=== PATIENT | male | born 1965 | race African-American/Black ===

== ENCOUNTER 2018-11-27 04:01 | Emergency (ER) | payer BC, MEDICAID ==
[~2018-11-27] VITALS: Ht 182.9 cm; Wt 117.0 kg
[~2018-11-27 04:01] MED LIST: DIOVAN HCT 1601 EAC1 ORAL
--- NOTE | 2018-11-27 04:14 | NUR ---
ED Nurse Note: PT AMBULATED TO ED C/O PAIN DUE INABILITY TO URINATE X 5 DAYS PT STATES HES BEEN DRIPPLING URINE AND ITS PAINFUL. Pt states he has stone inside bladder, Pt is AO x 4times, VSS, on room air no distress. DUNG son Pt at bedside.
--- NOTE | 2018-11-27 04:20 | Emergency Room Report ---
History of Present Illness General Chief Complaint: Male Urogenital Problems Source: Patient Present Illness HPI 52-year-old male history of hypertension history of kidney stones, recently diagnosed with an 8 mm and 10 mm stone, descending down the ureters, patient states that he is been having difficulty urinating over the past 3 days, he had cystoscopy with possible obstruction in the bladder, patient refused catheter at that point, patient now with difficulty urinating, no fevers no chills, states that he has some suprapubic pain no aggravating or alleviating factors, severity is moderate, not constant intermittent. Patient states he thinks he is now ready for a catheter. Allergies: Coded Allergies: No Known Allergies (Unverified , 03/12/14) Patient History Past Medical History: see triage record Social History: Reports: alcohol use - Social Reviewed Nursing Documentation: PMH: Agreed; PSxH: Agreed Nursing Documentation-PMH Past Medical History: No History, Except For Hx Hypertension: Yes Review of Systems All Other Systems: negative except mentioned in HPI Physical Exam Vital Signs Date Time Temp Pulse Resp B/P (MAP) Pulse Ox O2 Delivery O2 Flow Rate FiO2 11/27/18 04:03 97.9 85 16 152/98 (116) 95 Room Air Sp02 EP Interpretation: reviewed, normal General Appearance: well appearing, no apparent distress, alert Head: normocephalic, atraumatic Eyes: bilateral eye PERRL, bilateral eye EOMI ENT: uvula midline, moist mucus membranes Neck: supple, thyroid normal, supple/symm/no masses Respiratory: lungs clear, no respiratory distress, no retraction, no accessory muscle use Cardiovascular #1: normal peripheral pulses, regular rate, rhythm, no edema, no gallop, no murmur Gastrointestinal: non tender, soft, no guarding, no rebound Musculoskeletal: normal inspection Neurologic: alert, oriented x3 Psychiatric: mood/affect normal Skin: no rash, warm/dry Medical Decision Making ER Course 52-year-old male presents with kidney stone in the bladder, patient having difficulty urinating however patient is not acutely obstructed, attempted to pass Rivera twice however patient cannot tolerate the procedure, patient has a urologist, patient states he will follow-up with his urologist, he may receive lithotripsy, patient also given a referral to our urologist, no acute emergent requirements at this time, patient is able to pass urine in the department, disposition home with return precautions Lab Results Impression Laboratory Tests Test 11/27/18 04:45 11/27/18 06:10 White Blood Count 5.6 K/UL (4.8-10.8) Red Blood Count 4.63 M/UL (4.70-6.10) L Hemoglobin 11.9 G/DL (14.2-18.0) L Hematocrit 37.3 % (42.0-52.0) L Mean Corpuscular Volume 80 FL (80-99) Mean Corpuscular Hemoglobin 25.7 PG (27.0-31.0) L Mean Corpuscular Hemoglobin Concent 32.0 G/DL (32.0-36.0) Red Cell Distribution Width 13.0 % (11.6-14.8) Platelet Count 223 K/UL (150-450) Mean Platelet Volume 6.8 FL (6.5-10.1) Neutrophils (%) (Auto) 36.1 % (45.0-75.0) L Lymphocytes (%) (Auto) 49.3 % (20.0-45.0) H Monocytes (%) (Auto) 9.3 % (1.0-10.0) Eosinophils (%) (Auto) 3.7 % (0.0-3.0) H Basophils (%) (Auto) 1.5 % (0.0-2.0) Sodium Level 143 MMOL/L (136-145) Potassium Level 3.4 MMOL/L (3.5-5.1) L Chloride Level 107 MMOL/L (98-107) Carbon Dioxide Level 32 MMOL/L (21-32) Anion Gap 4 mmol/L (5-15) L Blood Urea Nitrogen 23 mg/dL (7-18) H Creatinine 1.4 MG/DL (0.55-1.30) H Estimate Glomerular Filtration Rate > 60 mL/min (>60) Glucose Level 112 MG/DL (74-106) H Calcium Level 8.8 MG/DL (8.5-10.1) Total Bilirubin 0.4 MG/DL (0.2-1.0) Aspartate Amino Transferase (AST) 25 U/L (15-37) Alanine Aminotransferase (ALT) 39 U/L (12-78) Alkaline Phosphatase 59 U/L (46-116) Total Protein 7.2 G/DL (6.4-8.2) Albumin 3.5 G/DL (3.4-5.0) Globulin 3.7 g/dL Albumin/Globulin Ratio 0.9 (1.0-2.7) L Urine Color Pale yellow Urine Appearance Slightly cloudy Urine pH 5 (4.5-8.0) Urine Specific [place] 1.020 (1.005-1.035) Urine Protein 2+ (NEGATIVE) H Urine Glucose (UA) Negative (NEGATIVE) Urine Ketones Negative (NEGATIVE) Urine Blood 5+ (NEGATIVE) H Urine Nitrite Negative (NEGATIVE) Urine Bilirubin Negative (NEGATIVE) Urine Urobilinogen 1 MG/DL (0.0-1.0) H Urine Leukocyte Esterase 2+ (NEGATIVE) H Urine RBC 40-60 /HPF (0 - 0) H Urine WBC 10-15 /HPF (0 - 0) H Urine Squamous Epithelial Cells Moderate /LPF (NONE/OCC) H Urine Bacteria Few /HPF (NONE) CT/MRI/US Diagnostic Results CT/MRI/US Diagnostic Results : Impression Preliminary Findings Only See Final Report For Complete Findings CT ABDOMEN & PELVIS Without Contrast: Normal appendix. Mild colonic diverticulosis without diverticulitis. No acute process along the GI tract. Nonobstructing nephrolithiasis in the left lower pole. Calcification measuring 7 mm in the region of the bulbar urethra. Indeterminant whether it is within the urethra or adjacent to it however the upstream urethra is not dilated. Fat-containing umbilical hernia. Bilateral pars defects at L3 with grade 1 anterolisthesis and degenerative changes at L3-4. Radiologist: Prateek Lazcano MD Study ready at 06:08 and initial results transmitted at 06:19 Last Vital Signs Date Time Temp Pulse Resp B/P (MAP) Pulse Ox O2 Delivery O2 Flow Rate FiO2 11/27/18 04:03 97.9 85 16 152/98 (116) 95 Room Air Disposition: HOME, SELF-CARE Condition: Stable Scripts Tamsulosin HCl (Flomax) 0.4 Mg Cap.er.24h 0.4 MG ORAL DAILY, #30 CAP Prov: Willie Leung MD 11/27/18 Cephalexin* (CEPHALEXIN*) 500 Mg Tablet 500 MG ORAL EVERY 6 HOURS, #40 CAP Prov: Willie Leung MD 8/15/19 Referrals: NOT CHOSEN IPA/,REFERRING (PCP) Onur Conner M.D. [facility] Shashi Trevino. [facility] Patient Instructions: Dietary Guidelines to Help Prevent Kidney Stones, Kidney Stones, [id number], Lithotripsy Additional Instructions: The patient was provided with discharge instructions, notified to follow-up with a primary care doctor and or specialist in the next 24-48 hours, and to return to the ED if they have worsening of their symptoms. Please note that this report is being documented using [employer] technology. This can lead to erroneous entry secondary to incorrect interpretation by the dictating instrument. FOLLOW-UP WITH UROLOGY Willie Helton MD Nov 27, 2018 04:20
--- NOTE | 2018-11-27 04:40 | NUR ---
ED Nurse Note: Unable to get urine via inserting cath, ERMD aware.
--- NOTE | 2018-11-27 04:43 | NUR ---
ED Nurse Note: Blood sample sent to lab.
[2018-11-27 04:44] VITALS: BP 142/78
[2018-11-27 04:55] LABS: BASOPHILS % (AUTO) 1.5 % (0.0-2.0); EOSINOPHILS % (AUTO) 3.7 % (0.0-3.0); HEMATOCRIT 37.3 % (42.0-52.0); HEMOGLOBIN 11.9 G/DL (14.2-18.0); LYMPHOCYTES % (AUTO) 49.3 % (20.0-45.0); MEAN CORPUSCULAR VOLUME 80 FL (80-99); MONOCYTES % (AUTO) 9.3 % (1.0-10.0); NEUTROPHILS % (AUTO) 36.1 % (45.0-75.0); PLATELET COUNT 223 K/UL (150-450); RED BLOOD COUNT 4.63 M/UL (4.70-6.10); WHITE BLOOD COUNT 5.6 K/UL (4.8-10.8)
[2018-11-27 05:04] LABS: ANION GAP 4 mmol/L (5-15); BLOOD UREA NITROGEN 23 mg/dL (7-18); CALCIUM 8.8 MG/DL (8.5-10.1); CARBON DIOXIDE 32 MMOL/L (21-32); CHLORIDE 107 MMOL/L (98-107); CREATININE 1.4 MG/DL (0.55-1.30); POTASSIUM 3.4 MMOL/L (3.5-5.1); SODIUM 143 MMOL/L (136-145)
[2018-11-27 05:09] LABS: ALANINE AMINOTRANSFERASE 39 U/L (12-78); ALBUMIN 3.5 G/DL (3.4-5.0); ALBUMIN/GLOBULIN RATIO 0.9 (1.0-2.7); ALKALINE PHOSPHATASE 59 U/L (46-116); ASPARTATE AMINO TRANSFERASE 25 U/L (15-37); BILIRUBIN,TOTAL 0.4 MG/DL (0.2-1.0)
--- NOTE | 2018-11-27 05:39 | NUR ---
ED Nurse Note: Pt went to CT scan.
--- NOTE | 2018-11-27 06:17 | NUR ---
ED Nurse Note: Urine sample sent to lab.
[2018-11-27 06:19] LABS: APPEARANCE,URINE SLIGHTLY CLOUDY; BILIRUBIN, URINE NEGATIVE (NEGATIVE); COLOR,URINE PALE YELLOW; GLUCOSE, URINE (UA) NEGATIVE (NEGATIVE); KETONES,URINE NEGATIVE (NEGATIVE); NITRITE,URINE NEGATIVE (NEGATIVE); PH,URINE 5 (4.5-8.0); PROTEIN,URINE 2+ (NEGATIVE); UROBILINOGEN,URINE 1 MG/DL (0.0-1.0)
--- NOTE | 2018-11-27 06:19 | Diagnostic Imaging Report ---
Indication: Abdominal pain for 2 days Technique: Spiral acquisitions obtained through the abdomen and pelvis. No oral contrast utilized, per emergency room physician request No IV contrast utilized, per referring physician request.. Multiplanar reconstructions were generated. Total dose length product 1074.66 mGycm. CTDIvol(s) 18.84 mGy. Dose reduction achieved using automated exposure control Comparison: 03/12/2014 Findings: Normal appendix. Again demonstrated is a broad-based fat-containing umbilical hernia. There are scattered colonic diverticula. No evidence of diverticulitis. Distal esophagus, stomach, duodenum are unremarkable. There is diastases of the rectus abdominis tendon. No small bowel distention. No free or loculated intraperitoneal gas or fluid is evident. Lack of IV contrast limits assessment of the solid organs. The liver demonstrates multiple cysts as well as a few subcentimeter low-attenuation lesions which are too small to characterize. The gallbladder, bile ducts, pancreas, spleen, adrenals are unremarkable. Again demonstrated is a large calculus in the lower pole of the left kidney, currently measuring 13 x 11 x 14 mm. No hydronephrosis or ureteral calculi. Previously demonstrated right renal calculi are no longer evident. Again demonstrated is wall thickening of the bladder. The prostate is mildly prominent. There is a similar calculus in the region of the bulbar urethra. This is not appreciated previously but could've been excluded from the prior imaging volume. Uncertain whether it is actually within the urethra or within the corpus spongiosum. The included lung bases are clear. The bones demonstrate bilateral L3 pars defects, with grade 1 L3 on L4 or spondylolisthesis, and secondary degenerative change. There are also bilateral L5 pars defects with resultant minimal L5 on S1 spondylolisthesis and secondary degenerative change. Impression: Bladder wall thickening, similar to the previous study, could indicate cystitis or could be on the basis of chronic outlet obstruction 7 mm calculus in the penis in the region of the bulbar urethra, could represent a urethral calculus. 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 The CT scanner at [facility] is accredited by the [employer] and the scans are performed using protocols designed to limit radiation exposure to as low as reasonably achievable to attain images of sufficient resolution adequate for diagnostic evaluation.
[2018-11-27] MEDS ORDERED: FLOMAX0.4 MG ORAL (06:22)
[2018-11-27] MEDS ORDERED: CEPHALEXIN500 M1 ORAL (06:22)
[2018-11-27 06:30] LABS: LEUKOCYTE ESTERASE ,URINE 2+ (NEGATIVE)
[2018-11-27 06:40] VITALS: BP 133/79
[2018-11-27] MEDS ORDERED: ALBUTEROL SULF8.5 GM INH (06:40)
--- NOTE | 2018-11-27 06:40 | NUR ---
ER DISCHARGE NOTE: Patient is cleared to be discharged per ERMD, pt is aox4, on room air, with stable vital signs. pt was given dc and prescription instructions, pt was able to verbalize understanding, pt id band and iv site removed without complications. pt is able to ambulate with steady gait. pt took all belongings.
[2018-11-27 06:41] VITALS: BP 133/79
[2018-11-28] MEDS ORDERED: NORCO 5-325 TA1 EACH ORAL (18:36)
== END 2018-11-27 06:45 | disposition home or self-care (01) ==
LOC: EMR 04:14
DX: N20.0 Calculus of kidney (principal); K42.9 Umbilical hernia without obstruction or gangrene; K57.90 Diverticulosis of intestine, part unspecified, without perforation or abscess without bleeding; Z87.442 Personal history of urinary calculi; I10 Essential (primary) hypertension
CPT/HCPCS: 36415; 74176; 80053; 81003; 85025; 87086; 99284

== ENCOUNTER 2018-11-28 12:53 | Emergency (ER) | payer MEDICAID ==
[~2018-11-28] VITALS: Ht 182.9 cm; Wt 120.2 kg
[~2018-11-28 12:53] MED LIST changes: +ALBUTEROL SULF8.5 GM INH; +CEPHALEXIN500 M1 ORAL; +FLOMAX0.4 MG ORAL
--- NOTE | 2018-11-28 13:52 | Emergency Room Report ---
History of Present Illness General Chief Complaint: Male Urogenital Problems Source: Patient (Eduardo Slater MD) Present Illness HPI Disclaimer: Please note that this report is being documented using [employer] technology. This can lead to erroneous entry secondary to incorrect interpretation by the dictating instrument. HPI: 52-year-old male with a history of kidney stones seen yesterday for right- sided flank pain difficulty urinating diagnosed with a 7 mm bulbar urethral stone as well as a chronic left inferior pole stone in the left kidney presents for evaluation of difficulty urinating. He states that he is continued to have right-sided flank pain rating to the groin. He is now putting out very little urine is concerned for obstruction. He has been taking his antibiotic and his Flomax without significant improvement. It appears that they try to pass a Rivera yesterday but were unable to go past and obstruction. He has not yet seen urology. Denies fever or chest pain. Reports intermittent nausea without vomiting. Denies diarrhea. PMH: Recurrent kidney stones Allergies: None Social Hx: Denies alcohol or drug abuse (Eduardo Slater MD) Allergies: Coded Allergies: No Known Allergies (Unverified , 03/12/14) Nursing Documentation-PMH Past Medical History: No History, Except For Hx Hypertension: Yes (Eduardo Slater MD) Review of Systems All Other Systems: negative except mentioned in HPI (Eduardo Slater MD) Physical Exam Vital Signs Date Time Temp Pulse Resp B/P (MAP) Pulse Ox O2 Delivery O2 Flow Rate FiO2 11/28/18 12:58 98.2 97 20 140/83 (102) 98 Room Air General: Awake and alert, no acute distress, sitting upright in a chair HEENT: NC/AT. EOMI. Cardiovascular: RRR. S1 and S2 normal. No murmur appreciated Resp: Normal work of breathing. No cough, wheezing or crackles appreciated Abdomen: Abdomen is soft, nondistended, obese. There is an easily reducible umbilical hernia that is nontender and without overlying skin cahnges. Palpation in the right lower quadrants and suprapubic regions find mild tenderness and fullness Skin: Intact. No abrasions, laceration or rash over the exposed skin MSK: Normal tone and bulk. Moving all extremities. No obvious deformity. Neuro: Awake and alert. Mentating appropriately. Back/Spine: There is right-sided CVA tenderness. Negative on left (Eduardo Slater MD) Procedures Additional Procedure Procedure Narrative Bedside ultrasound bladder scan. Postvoid residual volume 260 cc. (Eduardo Slater MD) Medical Decision Making Diagnostic Impression: Primary Impression: Urethral calculus ER Course Is a 52-year-old male who was diagnosed as 7 mm stone in the bulbar urethra yesterday presenting with inability to urinate. Patient states he has had urethral strictures in the past and has been very difficult to pass Rivera catheters. They attempted twice yesterday but were unable to pass a catheter. I attempted to pass a 14 Mauritian straight and a 14 Mauritian coud catheter also unsuccessfully. Will discuss with urology. Creatinine improved from 1.4 to 1.1. Postvoid residual is 260 cc. He received pain medication with some improvement. Patient will be signed out to the oncoming provider pending urology evaluation and treatment recommendations. Laboratory Tests Test 11/28/18 14:04 Sodium Level 146 MMOL/L (136-145) H Potassium Level 3.3 MMOL/L (3.5-5.1) L Chloride Level 108 MMOL/L (98-107) H Carbon Dioxide Level 32 MMOL/L (21-32) Anion Gap 6 mmol/L (5-15) Blood Urea Nitrogen 16 mg/dL (7-18) Creatinine 1.1 MG/DL (0.55-1.30) Estimate Glomerular Filtration Rate > 60 mL/min (>60) Glucose Level 118 MG/DL (74-106) H Calcium Level 9.0 MG/DL (8.5-10.1) (Eduardo Slater MD) ER Course This patient was turned over to me by Dr. Slater. The patient has a history of urethral strictures and has an identified urethral stone on the CT done yesterday. He was awaiting Rivera catheter placement by urology. Dr. Batista , urologist, did do a stricture dilation and placed a Rivera catheter in the emergency department. Urine output was obtained in the Rivera catheter. Patient was instructed to follow-up closely with an outpatient urologist per his insurance panel. He was given close return precautions and follow-up instructions. (Lindao,Swathi M. DO) Last Vital Signs Date Time Temp Pulse Resp B/P (MAP) Pulse Ox O2 Delivery O2 Flow Rate FiO2 11/28/18 12:58 98.2 97 20 140/83 (102) 98 Room Air (Eduardo Slater MD) Signed Out To: Dr. Cabrera (Eduardo Slater MD) Scripts Hydrocodone Bit/Acetaminophen 5-325* (NORCO 5-325*) 1 Each Tablet 1 TAB ORAL Q6H PRN for For Pain, #10 TAB 0 Refills Prov: Swathi Cabrera DO 11/28/18 Referrals: NOT CHOSEN IPA/,REFERRING (PCP) Eduardo Slater MD Nov 28, 2018 13:52 Swathi Cabrera DO Nov 28, 2018 18:31
[2018-11-28 14:00] VITALS: BP 140/83
[2018-11-28] MEDS ORDERED: Morphine Sulfate 2mg/ml Inj(IV/IM USE ONLY) IVP ONE (14:00)
--- NOTE | 2018-11-28 14:00 | NUR ---
ED Nurse Note: pt walked in due to flank pain cause by kidney stone as verbalized by the pt. pt was seen in the ed for the same reason 2 days ago. able to pass urine but taked time and is painful. will continue to monitor.
--- NOTE | 2018-11-28 14:16 | NUR ---
ED Nurse Note: blood drawn and sent to lab,. pt medicated as ordered. pt able to tolerate. will continue to monitor.
--- NOTE | 2018-11-28 14:30 | NUR ---
ED Nurse Note: pt stated it has no pain now.
[2018-11-28 14:38] LABS: ANION GAP 6 mmol/L (5-15); BLOOD UREA NITROGEN 16 mg/dL (7-18); CARBON DIOXIDE 32 MMOL/L (21-32); CHLORIDE 108 MMOL/L (98-107); CREATININE 1.1 MG/DL (0.55-1.30); POTASSIUM 3.3 MMOL/L (3.5-5.1); SODIUM 146 MMOL/L (136-145)
--- NOTE | 2018-11-28 15:00 | NUR ---
ED Nurse Note: ermd on bedside doing catheterization
--- NOTE | 2018-11-28 15:30 | NUR ---
ED Nurse Note: Received patient from [facility] RN, patient is stable in bed. in no acute distress, awaiting for urology.
--- NOTE | 2018-11-28 18:20 | NUR ---
ED Nurse Note: Urologist by the bedside.
[2018-11-28] MEDS ORDERED: HYDROcodone/Acetamin 5/325 tab ORAL ONE (18:30)
[2018-11-28] MEDS ORDERED: NORCO 5-325 TA1 EACH ORAL (18:36)
--- NOTE | 2018-11-28 18:59 | NUR ---
ED Nurse Note: patient provided with leg bag, instruction given. patient verbalized understanding. patient declined to take [place] prescription, patient reports he does have some pain medication at home, he does not need new prescription. Dr. Cabrera made aware.
--- NOTE | 2018-11-28 19:05 | NUR ---
ER DISCHARGE NOTE: Patient is cleared to be discharged per DUNG BERRIOS, pt is aox4, on room air, with stable vital signs. pt was given dc and prescription instructions, pt was able to verbalize understanding, pt id band and iv site removed without complications. pt is able to ambulate with steady gait. pt took all belongings. patient reports he does not feel drowsy at this time. patient is changing into his own clothes. patient advised to wait in the waiting room and under Rn's monitor until stable to be discharged, endorsed to Jane GEORGE.
[2018-11-28 19:16] VITALS: BP 140/83
--- NOTE | 2018-11-28 19:16 | NUR ---
ED Nurse Note: patient discharged from the waiting room. patient reports that he does not feel drowsy at all. patient is ambulatory steady gait. patient insisted that he is ok to go home now. RN advised to be safe and wait in the waiting room for some more time.
--- NOTE | 2018-11-28 19:30 | Consultation ---
DATE OF CONSULTATION: 11/28/2018 ATTENDING/CONSULTING PHYSICIAN: Dr. Slater of the emergency department. CHIEF COMPLAINT/ HISTORY OF PRESENT ILLNESS: I was asked by Dr. Slater to evaluate and treat this very pleasant 52-year-old, gentleman regarding history of urinary retention with urethral stone/stricture. Briefly, the patient has a history of kidney stones in the past. Apparently he has passed them without difficulty. He presented to the hospital with some difficulty passing urine; however, imaging was done which revealed some calcification in the bulbar urethra, thought to be a possible stone. Staff could not pass the catheter and as such, I was asked to evaluate the patient. PAST MEDICAL HISTORY: Kidney stones and hypertension. PAST SURGICAL HISTORY: Cystoscopy. MEDICATIONS: Please see chart for current medications administration details. ALLERGIES: No known drug allergies. SOCIAL HISTORY: Unremarkable for tobacco, alcohol, or drug use. FAMILY HISTORY: Noncontributory. REVIEW OF SYSTEMS: A 14-system review of systems was essentially unremarkable outside of what is described above. PHYSICAL EXAMINATION: GENERAL: The patient is a middle-aged gentleman, awake, alert, and oriented x4, very pleasant, mild distress. HEENT: NC/AT. EOMI. NECK: Supple. Full range of motion. Oropharynx clear. Chest within normal limits. ABDOMEN: Soft, nontender, and nondistended except suprapubically where there is some tenderness over the bladder. There was an umbilical hernia noted. EXTREMITIES: Warm and well perfused. No cyanosis, clubbing or edema. BACK: No CVA tenderness to percussion. NEUROLOGIC: Grossly nonfocal. GENITOURINARY: Normal male phallus, circumcised. No discharge, lesions, or curvature. There are bilateral descended testes and cord structures. No masses or tenderness to palpation. LABORATORY DATA: Sodium 146, potassium 3.3, chloride 108, bicarbonate 32, BUN 16, creatinine 1.1, glucose 118 calcium 9.0. DIAGNOSTIC IMAGING: CT scan of the abdomen and pelvis done yesterday reveals a 7 mm calculus in the penis in the region of the bulbar urethra, could represent a urethral calculus, correlate with clinical findings. There is bladder thickening. There is a large lower pole left renal stone measuring 13 x 11 x 14 millimeters in size. There is interval resolution of the previously demonstrated right renal calculi, other findings as noted. ASSESSMENT AND PLAN: In summary, the patient is a 52-year-old gentleman with a history of kidney stones. He also has a history of urethral strictures. He presents with difficulty urinating. Previous CT scan yesterday revealed 7 mm calcification in the bulbar urethra. It was initially thought to be a urethral stone. Staff could not pass catheter and as such, I was asked to evaluate the patient. Physical exam is notable for suprapubic distention and tenderness and umbilical hernia. Laboratory data is essentially unremarkable. Diagnostic imaging reveals the findings described above. I attempted to pass a 14-Bahraini coude catheter into the patient's bladder today, this met with resistance in the bulbar urethra but it was consistent with a urethral stricture rather than a stone which was stuck. I was able to negotiate a filiform into the bladder and once this was in place, I was able to dilate up the stricture from 12 to 18-Bahraini. Once this was done, I could pass a [place]-tip catheter over the wire and into the bladder with return of clear yellow urine output. It was irrigated and irrigated easily indicating good position within the bladder. It was inflated and left to gravity drainage. The patient's catheter should be kept in place and he can be discharged with it. He can follow up with planned contract urologist as an outpatient for further evaluation and management of the same. Thank you for allowing to participate in the care of this nice gentleman. Please do not hesitate to contact me for any questions that you may further have regarding his care. I will see him with you as needed. Onur Conner M.D. DR: Nandini JOB#: [id number] CC:
== END 2018-11-28 19:16 | disposition home or self-care (01) ==
LOC: EMR 13:28
DX: N21.1 Calculus in urethra (principal); I10 Essential (primary) hypertension
CPT/HCPCS: 36415; 80048; 96374; 99284; J2270

== ENCOUNTER 2018-12-03 02:52 | Emergency (ER) | payer MEDICAID ==
[~2018-12-03] VITALS: Ht 182.9 cm; Wt 121.1 kg
[~2018-12-03 02:52] MED LIST changes: +NORCO 5-325 TA1 EACH ORAL
[2018-12-03 03:10] VITALS: BP 137/85
--- NOTE | 2018-12-03 03:11 | NUR ---
ER Nurse Note: Pt came from home c/o removal of cath. Pt stated he was at [facility] 1 week ago for the insertion and now wants it removed. Pt has hx of kindey stones and had the cath inserted. Pt stated minor hematuria. Will continue to montior.
[2018-12-03 03:15] VITALS: BP 137/85
--- NOTE | 2018-12-03 03:15 | Emergency Room Report ---
History of Present Illness General Chief Complaint: Wound Recheck/Suture Removal Source: Patient Present Illness [facility] This is a 52-year-old male with history of hypertension. He presents here with chief complaint of Rivera removal. He had a Rivera placed 5 days ago secondary to a penile stone and urethral stricture. Neurologist have to come in to place one here. Patient said since then is been having not much of an issue other than some mild dysuria and constipation. He denies any calcification. He is unable to get a contracted urologist from his insurance. He is here to have it removed. Allergies: Coded Allergies: No Known Allergies (Unverified , 03/12/14) Patient History Past Medical History: see triage record, old chart reviewed, HTN Past Surgical History: none Pertinent Family History: none Social History: Denies: smoking Immunizations: other Reviewed Nursing Documentation: PMH: Agreed; PSxH: Agreed Nursing Documentation-PMH Hx Hypertension: Yes Review of Systems Eye: Denies: eye pain, blurred vision ENT: Denies: ear pain, nose congestion, throat swelling Respiratory: Denies: cough, shortness of breath Cardiovascular: Denies: chest pain, palpitations Gastrointestinal: Denies: abdominal pain, diarrhea, nausea, vomiting Musculoskeletal: Denies: back pain, joint pain Skin: Denies: rash Neurological: Denies: headache, numbness Endocrine: Denies: increased thirst, increased urine Hematologic/Lymphatic: Denies: easy bruising All Other Systems: negative except mentioned in HPI Physical Exam Vital Signs Date Time Temp Pulse Resp B/P (MAP) Pulse Ox O2 Delivery O2 Flow Rate FiO2 12/03/18 02:56 98.8 99 17 137/85 (102) 94 Room Air Vitals normal Sp02 EP Interpretation: reviewed, normal General Appearance: well appearing, no apparent distress, alert Head: normocephalic, atraumatic Eyes: bilateral eye PERRL, bilateral eye EOMI ENT: hearing grossly normal, normal pharynx Neck: full range of motion, supple, no meningismus Respiratory: chest non-tender, lungs clear, normal breath sounds Cardiovascular #1: regular rate, rhythm, no murmur Gastrointestinal: normal bowel sounds, non tender, no mass, no organomegaly, no bruit, non-distended Genitourinary: other - Rivera with clean urine Musculoskeletal: back normal, gait/station normal, normal range of motion Psychiatric: mood/affect normal Medical Decision Making Diagnostic Impression: Primary Impression: Encounter for Rivera catheter removal ER Course Patient here for his Rivera to be removed. He has no issue and unable to follow- up with the urologist. No evidence of infection. Will discharge home. Last Vital Signs Date Time Temp Pulse Resp B/P (MAP) Pulse Ox O2 Delivery O2 Flow Rate FiO2 12/03/18 03:10 98.8 99 17 137/85 94 Room Air Status: improved Disposition: HOME, SELF-CARE Condition: Stable Referrals: NOT CHOSEN IPA/,REFERRING (PCP) Additional Instructions: Follow-up with a urologist in 7 to 10 days. Return if symptoms worsen. Herb Bajwa MD Dec 03, 2018 03:15
--- NOTE | 2018-12-03 03:15 | NUR ---
ER Nurse Note: Pt seen, treated, medically cleared for discharge by ERMD. Discharge instuctions given with repeat verbalization by pt. Emphasized to follow up with primay care provider. All orders completed per ERMD orders. Pt a&ox4, VSS, no signs of distress. Cather removed; tolerated well. ID band removed. All questions answered per pt's questions. Pt left with all belongings, left with own transportation.
== END 2018-12-03 03:15 | disposition home or self-care (01) ==
LOC: EMR 03:03
DX: Z46.6 Encounter for fitting and adjustment of urinary device (principal); I10 Essential (primary) hypertension
CPT/HCPCS: 99282

== ENCOUNTER 2019-02-27 01:48 | Emergency (ER) | payer SELFPAY ==
[~2019-02-27] VITALS: Ht 182.9 cm; Wt 119.3 kg
[2019-02-27 02:05] VITALS: BP 129/88
--- NOTE | 2019-02-27 02:05 | NUR ---
ED Nurse Note: Patient walked in to Er c/o nose congestion x 3-5 days. States has green DC from nose. AAO x4, VSS at this time, denyes fevere at home.
[2019-02-27 02:20] VITALS: BP 129/88
[2019-02-27] MEDS ORDERED: PREDNISONE20 MG ORAL (02:20)
[2019-02-27] MEDS ORDERED: ZITHROMAX250 MG ORAL (02:20)
--- NOTE | 2019-02-27 02:21 | Emergency Room Report ---
History of Present Illness General Chief Complaint: Pain Source: Patient Present Illness HPI Is a 53-year-old male with a history of high blood pressure. He presents with chief complaint of congestion and productive cough. Onset for last 3 to 4 days. Coughing is productive of green sputum. No fever chills. No nausea no vomiting. He does use an inhaler. He said he has a history of "bronchitis". He said this been diagnosed multiple times. He also has complaint of bilateral breast pain and swelling. This been ongoing for over a month. Has not seen his primary care doctor for this. No discharge. No fever chills. Worse with palpation. Allergies: Coded Allergies: No Known Allergies (Unverified , 03/12/14) Patient History Past Medical History: see triage record, old chart reviewed, HTN Past Surgical History: other Pertinent Family History: none Social History: Denies: smoking Immunizations: other Reviewed Nursing Documentation: PMH: Agreed; PSxH: Agreed Nursing Documentation-PMH Hx Hypertension: Yes Review of Systems Eye: Denies: eye pain, blurred vision ENT: Reports: nose congestion; Denies: ear pain, throat swelling Respiratory: Reports: cough, shortness of breath Cardiovascular: Denies: chest pain, palpitations Gastrointestinal: Denies: abdominal pain, diarrhea, nausea, vomiting Musculoskeletal: Denies: back pain, joint pain Skin: Denies: rash Neurological: Denies: headache, numbness Endocrine: Denies: increased thirst, increased urine Hematologic/Lymphatic: Denies: easy bruising All Other Systems: negative except mentioned in HPI Physical Exam Vital Signs Date Time Temp Pulse Resp B/P (MAP) Pulse Ox O2 Delivery O2 Flow Rate FiO2 02/27/19 01:56 98.4 96 18 129/88 (102) 92 Room Air Vitals normal Sp02 EP Interpretation: reviewed, normal General Appearance: well appearing, no apparent distress, alert Head: normocephalic, atraumatic Eyes: bilateral eye PERRL, bilateral eye EOMI ENT: hearing grossly normal, normal pharynx, other - Nasal turbinates with edema Neck: full range of motion, supple, no meningismus Respiratory: chest non-tender, lungs clear, normal breath sounds, other - He has gynecomastia. I see no evidence of any mass or any retracted nipples. Cardiovascular #1: regular rate, rhythm, no murmur Gastrointestinal: normal bowel sounds, non tender, no mass, no organomegaly, no bruit, non-distended Musculoskeletal: back normal, gait/station normal, normal range of motion Psychiatric: mood/affect normal Medical Decision Making Diagnostic Impression: Primary Impression: URI (upper respiratory infection) Qualified Codes: J06.9 - Acute upper respiratory infection, unspecified Additional Impressions: Cough Breast pain in male ER Course Patient presents with upper respiratory infection and cough. Most likely a viral infection with exacerbation of his bronchitis. This most likely asthma. We will put him on antibiotics and steroid. As far as his breast pain, I did not palpate any abnormality. Recommend that he get further work-up with mammography to rule out breast cancer. Explained to him that it can happen in men. Last Vital Signs Date Time Temp Pulse Resp B/P (MAP) Pulse Ox O2 Delivery O2 Flow Rate FiO2 02/27/19 01:56 98.4 96 18 129/88 (102) 92 Room Air Status: unchanged Disposition: HOME, SELF-CARE Condition: Stable Scripts Azithromycin* (ZITHROMAX*) 250 Mg Tablet 250 MG ORAL DAILY, #6 TAB 0 Refills Take two tables once daily for 1 day, then one tablet once daily for 4 days. Prov: Herb Bajwa MD 02/27/19 Prednisone* (PREDNISONE*) 20 Mg Tablet 40 MG ORAL DAILY, #10 TAB Prov: Herb Bajwa MD 02/27/19 Additional Instructions: Increase fluids. Use your inhaler and medication. Follow-up with your doctor in 7 days. You will need work-up for breast pain to rule out breast cancer in men. You may need a mammography. Return if symptoms worsen. Herb Bajwa MD Feb 27, 2019 02:21
--- NOTE | 2019-02-27 02:30 | NUR ---
ED Nurse Note: Pt cleared by health care Provider for discharge. DC instructions/prescription was given and explained to pt and verbalized understanding of teachings. All medical deviecs such as ID band removed. Pt is AAO x4, ambulatory and left with all personal belongings.
== END 2019-02-27 02:20 | disposition home or self-care (01) ==
LOC: EMR 02:15
DX: J06.9 Acute upper respiratory infection, unspecified (principal); R05 Cough; N64.4 Mastodynia
CPT/HCPCS: 99282